=== PATIENT | male | born 1960 | race Caucasian/White ===

== ENCOUNTER 2018-07-24 07:50 | Emergency (ER) | payer OTHER ==
[2018-07-24] MEDS ORDERED: LIDOCAINE 1% MPF 5 ML VIAL ONE (08:17)
--- NOTE | 2018-07-24 09:00 | ER ---
Nurse's Notes [facility] Name: Caesar Aquino Age: 58 yrs Sex: Male : 1960 Arrival Date: 07/24/2018 Time: 07:52 Bed 20 Private MD: Diagnosis: Laceration without foreign body of hand Presentation: 07/24 07:53 Presenting complaint: Patient states: laceration to the left hand happened this morning sv with a knife. Transition of care: patient was not received from another setting of care. Complicating Factors: There are no complicating factors for this patient. Onset of symptoms was July 24, 2018. Initial Sepsis Screen: Does the patient meet any 2 criteria? No. Patient's initial sepsis screen is negative. Does the patient have a suspected source of infection? No. Patient's initial sepsis screen is negative. Care prior to arrival: None. 07:53 Method Of Arrival: Ambulatory sv 07:53 Acuity: ALEXIA 3 sv 08:00 Risk Assessment: Do you want to hurt yourself or someone else? Patient reports no em desire to harm self or others. Historical: - Allergies: 07:58 No Known Allergies; sv - Home Meds: 07:58 None [Active]; sv - PMHx: 07:58 None; sv - PSHx: 07:58 back surgery; bone graft to left forearm; sv - Immunization history:: Adult Immunizations up to date, Last tetanus immunization: < 10 years ago. - Social history:: Smoking status: Patient uses tobacco products, denies chronic smoking, but will smoke occasionally, Patient uses alcohol, occasionally. - Ebola Screening: : No symptoms or risks identified at this time. - Family history:: not pertinent. Screenin:00 Abuse screen: Denies threats or abuse. Nutritional screening: No deficits noted. em Tuberculosis screening: No symptoms or risk factors identified. Fall Risk None identified. Assessment: 07:53 General: Appears in no apparent distress. uncomfortable, Behavior is calm, cooperative, sv appropriate for age. Pain: Complains of pain in left hand Pain currently is 1 out of 10 on a pain scale. Neuro: Level of Consciousness is awake, alert, obeys commands, Oriented to person, place, time, situation, Moves all extremities. Full function Gait is steady. Respiratory: Respiratory effort is even, unlabored, Respiratory pattern is regular, symmetrical. Derm: Skin is pink, warm \T\ dry. Musculoskeletal: Range of motion: intact in all extremities. Injury Description: Laceration sustained to medial aspect of left hand is contaminated, 0.5 to 2.5 cm long, was sustained 30-60 minutes ago. 09:05 Reassessment: Patient appears in no apparent distress at this time. Patient and/or em family updated on plan of care and expected duration. Pain level reassessed. Patient is alert, oriented x 3, equal unlabored respirations, skin warm/dry/pink. Vital Signs: 07:58 BP 142 / 100; Pulse 71; Resp 18; Temp 97; Pulse Ox 97% ; Weight 97.52 kg; Height 6 ft. sv 0 in. (182.88 cm); Pain 1/10; 09:05 BP 138 / 97; Pulse 68; Resp 18; Pulse Ox 99% on R/A; em 07:58 Body Mass Index 29.16 (97.52 kg, 182.88 cm) sv ED Course: 07:52 Patient arrived in ED. rg4 07:53 Sabas Salcido MD is Attending Physician. dalton 07:58 Triage completed. sv 07:59 Arm band placed on Patient placed in an exam room, on a stretcher. sv 08:00 Patient has correct armband on for positive identification. Bed in low position. Call em light in reach. 08:07 Minor Barnes LVN is Primary Nurse. em 08:55 Assist provider with laceration repair on medial aspect of left hand that was 2.5 cm. em or less using sutures. Set up tray. Performed by Sabas Salcido MD Dressed with 4X4s, Kerlix, Neosporin, Patient tolerated well. 09:07 Patient did not have IV access during this emergency room visit. em Administered Medications: 08:50 Drug: Lidocaine (1 %) 5 ml {Note: administered by Dr. Salcido.} Volume: 5 ml; Route: em Infiltration; Site: wound; 09:06 Follow up: Response: No adverse reaction; Pain is decreased em 09:00 Drug: Tetanus-Diphtheria Toxoid Adult 0.5 ml {Chronic Care Nurse: [employer]. Exp: em 06/09/2020. Lot #: [id number]. } Route: IM; Site: left deltoid; 09:06 Follow up: Response: No adverse reaction em Outcome: 08:59 Discharge ordered by . dalton 09:07 Discharged to home ambulatory, with family. em 09:07 Condition: good 09:07 Discharge instructions given to patient, Instructed on discharge instructions, follow up and referral plans. Demonstrated understanding of instructions, follow-up care. 09:08 Patient left the ED. em Signatures: Sakshi Lange RN RN sv Anderson, Corey, MD MD cha Munoz, Edgar, LUBE MAN LUBE MAN Larissa Mccarty rg4
--- NOTE | 2018-07-24 09:01 | EDPHYS ---
Physician Documentation [facility] Name: Caesar Aquino Age: 58 yrs Sex: Male : 1960 Arrival Date: 07/24/2018 Time: 07:52 Bed 20 Private MD: Sabas Alvarado HPI: 07/24 08:55 This 58 yrs old Male presents to ER via Ambulatory with complaints of dalton Laceration To Hand. 08:55 The patient has a laceration occurred at home. The laceration(s) is(are) located on the dalton left hand. Onset: The symptoms/episode began/occurred just prior to arrival. Associated signs and symptoms: The patient has no apparent associated signs or symptoms. The patient has not experienced similar symptoms in the past. Historical: - Allergies: 07:58 No Known Allergies; sv - Home Meds: 07:58 None [Active]; sv - PMHx: 07:58 None; sv - PSHx: 07:58 back surgery; bone graft to left forearm; sv - Immunization history:: Adult Immunizations up to date, Last tetanus immunization: < 10 years ago. - Social history:: Smoking status: Patient uses tobacco products, denies chronic smoking, but will smoke occasionally, Patient uses alcohol, occasionally. - Ebola Screening: : No symptoms or risks identified at this time. - Family history:: not pertinent. ROS: 08:55 Constitutional: Negative for fever, chills, and weight loss, Eyes: Negative for injury, dalton pain, redness, and discharge, ENT: Negative for injury, pain, and discharge, Neck: Negative for injury, pain, and swelling, Cardiovascular: Negative for chest pain, palpitations, and edema, Respiratory: Negative for shortness of breath, cough, wheezing, and pleuritic chest pain, Abdomen/GI: Negative for abdominal pain, nausea, vomiting, diarrhea, and constipation, Back: Negative for injury and pain, : Negative for injury, bleeding, discharge, and swelling, Skin: Negative for injury, rash, and discoloration, Neuro: Negative for headache, weakness, numbness, tingling, and seizure, Psych: Negative for depression, anxiety, suicide ideation, homicidal ideation, and hallucinations, Allergy/Immunology: Negative for hives, rash, and allergies, Endocrine: Negative for neck swelling, polydipsia, polyuria, polyphagia, and marked weight changes, Hematologic/Lymphatic: Negative for swollen nodes, abnormal bleeding, and unusual bruising. 08:55 MS/extremity: Positive for laceration. Exam: 08:55 Constitutional: This is a well developed, well nourished patient who is awake, alert, dalton and in no acute distress. Head/Face: Normocephalic, atraumatic. Eyes: Pupils equal round and reactive to light, extra-ocular motions intact. Lids and lashes normal. Conjunctiva and sclera are non-icteric and not injected. Cornea within normal limits. Periorbital areas with no swelling, redness, or edema. ENT: Nares patent. No nasal discharge, no septal abnormalities noted. Tympanic membranes are normal and external auditory canals are clear. Oropharynx with no redness, swelling, or masses, exudates, or evidence of obstruction, uvula midline. Mucous membranes moist. Neck: Trachea midline, no thyromegaly or masses palpated, and no cervical lymphadenopathy. Supple, full range of motion without nuchal rigidity, or vertebral point tenderness. No Meningismus. Chest/axilla: Normal chest wall appearance and motion. Nontender with no deformity. No lesions are appreciated. Cardiovascular: Regular rate and rhythm with a normal S1 and S2. No gallops, murmurs, or rubs. Normal PMI, no JVD. No pulse deficits. Respiratory: Lungs have equal breath sounds bilaterally, clear to auscultation and percussion. No rales, rhonchi or wheezes noted. No increased work of breathing, no retractions or nasal flaring. Abdomen/GI: Soft, non-tender, with normal bowel sounds. No distension or tympany. No guarding or rebound. No evidence of tenderness throughout. Back: No spinal tenderness. No costovertebral tenderness. Full range of motion. Male : Normal genitalia with no discharge or lesions. Skin: Warm, dry with normal turgor. Normal color with no rashes, no lesions, and no evidence of cellulitis. Neuro: Awake and alert, GCS 15, oriented to person, place, time, and situation. Cranial nerves II-XII grossly intact. Motor strength 5/5 in all extremities. Sensory grossly intact. Cerebellar exam normal. Normal gait. Psych: Awake, alert, with orientation to person, place and time. Behavior, mood, and affect are within normal limits. 08:55 Musculoskeletal/extremity: ROM: no acute changes, Circulation is intact in all extremities. Sensation intact. Compartment Syndrome exam of affected extremity: is normal. Vital Signs: 07:58 BP 142 / 100; Pulse 71; Resp 18; Temp 97; Pulse Ox 97% ; Weight 97.52 kg; Height 6 ft. sv 0 in. (182.88 cm); Pain 1/10; 09:05 BP 138 / 97; Pulse 68; Resp 18; Pulse Ox 99% on R/A; em 07:58 Body Mass Index 29.16 (97.52 kg, 182.88 cm) sv Laceration: 08:55 Wound Repair of 1.5cm ( 0.6in ) subcutaneous laceration to inner aspect of left palm dalton and medial aspect of left hand. Linear shaped.. Distal neuro/vascular/tendon intact. Anesthesia: Local anesthetic administered with 4 mls of 1% lidocaine. Wound prep: Simple cleansing by me, Moderate cleansing. Skin closed with 3 5-0 Prolene using interrupted sutures and sterile technique. Dressed with Neosporin. Patient tolerated well. MDM: 07:54 Patient medically screened. [facility] 08:55 Data reviewed: vital signs, nurses notes. [facility] 07/24 08:55 Order name: Dressing - Wound; Complete Time: 08:57 [facility] 07/24 08:55 Order name: Gloves, Sterile; Complete Time: 08:57 [facility] 07/24 08:55 Order name: Setup Suture Tray; Complete Time: 08:57 [facility] Administered Medications: 08:50 Drug: Lidocaine (1 %) 5 ml {Note: administered by Dr. Salcido.} Volume: 5 ml; Route: em Infiltration; Site: wound; 09:06 Follow up: Response: No adverse reaction; Pain is decreased em 09:00 Drug: Tetanus-Diphtheria Toxoid Adult 0.5 ml {Punch Operator: [email or web address]. Exp: em 06/09/2020. Lot #: [id number]. } Route: IM; Site: left deltoid; 09:06 Follow up: Response: No adverse reaction em Disposition: 07/24/18 08:59 Discharged to Home. Impression: Laceration without foreign body of hand. - Condition is Stable. - Discharge Instructions: Laceration Care, Adult, Laceration Care, Adult, [id number]. - Medication Reconciliation Form, Thank You Letter, Antibiotic Education, Prescription Opioid Use form. - Follow up: Private Physician; When: 7 - 10 days; Reason: Recheck today's complaints, Continuance of care, Re-evaluation by your physician. - Problem is new. - Symptoms have improved. Signatures: Sakshi Lange, NATHEN RN Sabas Hilliard MD MD cha Munoz, Edgar, TRAFFIC OBSERVER TRAFFIC OBSERVER em Corrections: (The following items were deleted from the chart) 09:08 08:59 07/24/2018 08:59 Discharged to Home. Impression: Laceration without foreign body em of hand. Condition is Stable. Forms are Medication Reconciliation Form, Thank You Letter, Antibiotic Education, Prescription Opioid Use. Follow up: Private Physician; When: 7 - 10 days; Reason: Recheck today's complaints, Continuance of care, Re-evaluation by your physician. Problem is new. Symptoms have improved. dalton
[2018-07-24] MEDS ORDERED: TETANUS & DIPHTHERIA TOX,ADULT 0.5 ML VIAL ONE (09:08)
== END 2018-07-24 09:08 | disposition home or self-care (01) ==
LOC: ER 07:50
PROC: 0JQK0ZZ Repair Left Hand Subcutaneous Tissue and Fascia, Open Approach (ICD-10-PCS; principal; 2018-07-24)
DX: S61.412A Laceration without foreign body of left hand, initial encounter (principal); Z23 Encounter for immunization; W45.8XXA Other foreign body or object entering through skin, initial encounter; Y93.9 Activity, unspecified; Y92.009 Unspecified place in unspecified non-institutional (private) residence as the place of occurrence of the external cause; Z72.0 Tobacco use
CPT/HCPCS: 90714; 99283

== ENCOUNTER 2018-08-25 15:52 | Emergency (ER) | payer OTHER ==
[2018-08-25 16:35] LABS: Absolute Lymphocytes (CBC) 1.8 K/uL (0.7-4.9); Absolute Monocytes 0.9 K/uL (0.1-1.3); Absolute Neutrophil 8.5 K/uL (1.8-8.0); Basophils % 0.3 % (0-1.3); Eosinophils % 1.4 % (0-4.4); Hematocrit 43.9 % (39.6-49.0); Lymphocytes % 16.1 % (15.3-44.8); MPV 7.4 fL (7.6-11.3); Monocytes % 7.8 % (3.3-12.3); RBC Red Blood Cell Count 5.05 M/uL (4.33-5.43)
[2018-08-25 16:54] LABS: Albumin 3.6 g/dL (3.4-5.0); Bilirubin Direct 0.1 mg/dL (0-0.2); Bilirubin Total 0.3 mg/dL (0.2-1.0); Potassium 3.8 mmol/L (3.5-5.1); Protein, Total 8.1 g/dL (6.4-8.2)
[2018-08-25] MEDS ORDERED: FAMOTIDINE 20 MG/2 ML VIAL IV ONE (16:55)
[2018-08-25] MEDS ORDERED: MAGNE/ALUM HYDROXD 30 ML UCUP ONE (16:55)
[2018-08-25] MEDS ORDERED: LIDOCAINE VISCOUS 2% SOLN 15 ML UDC ONE (16:55)
--- NOTE | 2018-08-25 17:27 | RAD REPORT ---
EXAM DESCRIPTION: CT - Abdomen Pelvis W Contrast - 08/25/2018 5:12 pm CLINICAL HISTORY: Abdominal pain/epigastric pain. COMPARISON: 2014 CT chest TECHNIQUE: Computed axial tomography of the abdomen pelvis was obtained. 100 cc Isovue-300 was admin istered intravenously. Oral contrast was not requested which limits evaluation of bowel. All CT scans are performed using dose optimization technique as appropriate and may include automated exposure control or mA/KV adjustment according to patient size. FINDINGS: Mild to moderate stranding is present adjacent to the pancreatic head. Pancreatic head is mildly inhomogeneous. A pseudocyst is not seen Fatty liver. Several hepatic cysts largest measuring 2.5 centimeters Spleen, adrenals and right kidney are unremarkable. Left renal cortical thinning perhaps secondary to prior inflammation. There is no evidence of diverticulitis. Normal appendix Small inguinal hernias contain fat. Mild enlargement of the prostate gland Tiny left basilar lung nodules unchanged from 2014 is benign IMPRESSION: [id number] pancreatitis.
--- NOTE | 2018-08-25 17:37 | EDPHYS ---
Physician Documentation [facility] Name: Caesar Aquino Age: 58 yrs Sex: Male : 1960 Arrival Date: 08/25/2018 Time: 15:55 Bed 13 Private MD: None, None ED Physician Sherita Duncan HPI: 08/25 16:35 This 58 yrs old Male presents to ER via Ambulatory with complaints of ma2 Abdominal Pain. 16:35 The patient presents with abdominal pain. Onset: The symptoms/episode began/occurred ma2 gradually, 2 day(s) ago. The symptoms do not radiate. Associated signs and symptoms: Pertinent positives: Pertinent negatives: anorexia, diarrhea, dysuria, headache, vomiting. The symptoms are described as burning. 16:36 Severity of pain: At its worst the pain was moderate in the emergency department the ma2 pain is unchanged. Historical: - Allergies: 16:03 No Known Allergies; sv - PMHx: 16:03 None; sv - PSHx: 16:03 back surgery; bone graft to left forearm; sv - Immunization history:: Adult Immunizations up to date. - Social history:: Patient/guardian denies using alcohol, street drugs, The patient lives with family, Smoking status: Patient/guardian denies using tobacco. - Family history:: not pertinent. - Ebola Screening: : No symptoms or risks identified at this time. ROS: 16:42 Constitutional: Negative for fever, chills, and weight loss, ENT: Negative for injury, ma2 pain, and discharge, Neck: Negative for injury, pain, and swelling, Cardiovascular: Negative for chest pain, palpitations, and edema, Respiratory: Negative for shortness of breath, cough, wheezing, and pleuritic chest pain, Abdomen/GI: Negative for abdominal pain, nausea, diarrhea, and constipation, Back: Negative for injury and pain, MS/Extremity: Negative for injury and deformity, Skin: Negative for injury, rash, and discoloration, Psych: Negative for depression, anxiety, suicide ideation, homicidal ideation, and hallucinations. 16:42 Abdomen/GI: Positive for abdominal pain, Negative for nausea and vomiting, nausea, vomiting, and diarrhea, vomiting, constipation, rectal bleeding. Exam: 16:42 Constitutional: This is a well developed, well nourished patient who is awake, alert, ma2 and in no acute distress. 16:42 ENT: Nares patent. No nasal discharge, no septal abnormalities noted. Tympanic membranes are normal and external auditory canals are clear. Oropharynx with no redness, swelling, or masses, exudates, or evidence of obstruction, uvula midline. Mucous membranes moist. Neck: Trachea midline, no thyromegaly or masses palpated, and no cervical lymphadenopathy. Supple, full range of motion without nuchal rigidity, or vertebral point tenderness. No Meningismus. Chest/axilla: Normal chest wall appearance and motion. Nontender with no deformity. No lesions are appreciated. Cardiovascular: Regular rate and rhythm with a normal S1 and S2. No gallops, murmurs, or rubs. Normal PMI, no JVD. No pulse deficits. Respiratory: Lungs have equal breath sounds bilaterally, clear to auscultation and percussion. No rales, rhonchi or wheezes noted. No increased work of breathing, no retractions or nasal flaring. MS/ Extremity: Pulses equal, no cyanosis. Neurovascular intact. Full, normal range of motion. Neuro: Awake and alert, GCS 15, oriented to person, place, time, and situation. Cranial nerves II-XII grossly intact. Motor strength 5/5 in all extremities. Sensory grossly intact. Cerebellar exam normal. Normal gait. 16:42 Abdomen/GI: Inspection: abdomen appears normal, Bowel sounds: normal, Palpation: moderate abdominal tenderness, in the epigastric area, Liver: no appreciated palpable abnormalities. Vital Signs: 16:03 BP 133 / 83; Pulse 84; Resp 18; Temp 98.9; Pulse Ox 95% ; Weight 93.44 kg; Height 6 ft. sv 0 in. (182.88 cm); Pain 3/10; 17:00 BP 128 / 78; Pulse 82; Resp 16; Pulse Ox 99% on R/A; Pain 3/10; hb 16:03 Body Mass Index 27.94 (93.44 kg, 182.88 cm) sv MDM: 16:04 Patient medically screened. [facility] 16:42 Differential diagnosis: cholecystitis, Cholelithiasis, gastritis, gastroesophageal ma2 reflux disease. 17:36 Data reviewed: vital signs, nurses notes. Counseling: I had a detailed discussion with ma2 the patient and/or guardian regarding: the historical points, exam findings, and any diagnostic results supporting the discharge/admit diagnosis, the presence of at least one elevated blood pressure reading (>120/80) during this emergency department visit, the need for outpatient follow up. Response to treatment: the patient's symptoms have resolved after treatment. 08/25 16:05 Order name: Basic Metabolic Panel; Complete Time: 17:36 ma2 08/25 16:05 Order name: CBC with Diff; Complete Time: 16:41 ma2 08/25 16:05 Order name: Creatinine for Radiology; Complete Time: 17:36 ma2 08/25 16:05 Order name: Hepatic Function; Complete Time: 17:36 ma2 08/25 16:05 Order name: Lipase; Complete Time: 17:36 ma2 08/25 16:57 Order name: Urine Dipstick--Ancillary (enter results) bd 08/25 16:05 Order name: IV Saline Lock; Complete Time: 16:18 ma2 08/25 16:05 Order name: Labs collected and sent; Complete Time: 16:18 ma2 08/25 16:05 Order name: CT Abd/Pelvis - W/Contrast; Complete Time: 17:36 ma2 08/25 16:05 Order name: Urine Dipstick-Ancillary (obtain specimen); Complete Time: 16:55 ma2 Administered Medications: 16:55 Drug: Pepcid 20 mg Route: IVP; Site: right antecubital; hb 16:55 Drug: GI Cocktail without - (Maalox Suspension 30 ml, Lidocaine Liquid 2 % 15 hb ml) Route: PO; Disposition: 08/25/18 17:37 Discharged to Home. Impression: Acute pancreatitis, Gastritis, unspecified. - Condition is Stable. - Discharge Instructions: Gastritis, Adult. - Prescriptions for Pepcid 20 mg Oral Tablet - take 1 tablet by ORAL route every 12 hours for 10 days; 20 tablet. Tylenol- Codeine #3 300-30 mg Oral Tablet - take 2 tablet by ORAL route every 6 hours As needed; 30 tablet. promethazine 25 mg Oral Tablet - take 1 tablet by ORAL route every 6 hours As needed; 20 tablet. - Medication Reconciliation Form, Thank You Letter, Antibiotic Education, Prescription Opioid Use form. - Follow up: Private Physician; When: Tomorrow; Reason: Continuance of care. Signatures: Dispatcher [facility] Sakshi Beach RN RN Michaela Gatica RN RN Sherita Duncan MD MD ma2 Corrections: (The following items were deleted from the chart) 18:12 17:37 08/25/2018 17:37 Discharged to Home. Impression: Acute pancreatitis; Gastritis, hb unspecified. Condition is Stable. Forms are Medication Reconciliation Form, Thank You Letter, Antibiotic Education, Prescription Opioid Use. Follow up: Private Physician; When: Tomorrow; Reason: Continuance of care. ma2
--- NOTE | 2018-08-25 17:37 | ER ---
Nurse's Notes [facility] Name: Caesar Aquino Age: 58 yrs Sex: Male : 1960 Arrival Date: 08/25/2018 Time: 15:55 Bed 13 Private MD: None, None Diagnosis: Acute pancreatitis;Gastritis, unspecified Presentation: 08/25 16:02 Presenting complaint: Patient states: epigastric pain x 4 days. Pt states pain gets sv better after eating sometimes. Denies n/v/d. Transition of care: patient was not received from another setting of care. Onset of symptoms was August 21, 2018. Care prior to arrival: None. 16:02 Method Of Arrival: Ambulatory sv 16:02 Acuity: ALEXIA 3 sv 16:15 Initial Sepsis Screen: Does the patient meet any 2 criteria? No. Patient's initial hb sepsis screen is negative. Does the patient have a suspected source of infection? No. Patient's initial sepsis screen is negative. 16:30 Risk Assessment: Do you want to hurt yourself or someone else? Patient reports no hb desire to harm self or others. Historical: - Allergies: 16:03 No Known Allergies; sv - PMHx: 16:03 None; sv - PSHx: 16:03 back surgery; bone graft to left forearm; sv - Immunization history:: Adult Immunizations up to date. - Social history:: Patient/guardian denies using alcohol, street drugs, The patient lives with family, Smoking status: Patient/guardian denies using tobacco. - Family history:: not pertinent. - Ebola Screening: : No symptoms or risks identified at this time. Screenin:15 Abuse screen: Denies threats or abuse. Denies injuries from another. Nutritional hb screening: No deficits noted. Tuberculosis screening: No symptoms or risk factors identified. Fall Risk None identified. Assessment: 16:15 General: Appears in no apparent distress. Behavior is calm, cooperative. Pain: Pain hb currently is 3 out of 10 on a pain scale. Neuro: Level of Consciousness is awake, alert, obeys commands, Oriented to person, place, time, situation. Cardiovascular: Capillary refill < 3 seconds Patient's skin is warm and dry. Respiratory: Airway is patent Respiratory effort is even, unlabored, Respiratory pattern is regular, symmetrical, Breath sounds are clear bilaterally. GI: Abdomen is non-distended, Bowel sounds present X 4 quads. Abd is soft and non tender X 4 quads. Reports upper abdominal pain. : No signs and/or symptoms were reported regarding the genitourinary system. EENT: No signs and/or symptoms were reported regarding the EENT system. Derm: Skin is intact, is healthy with good turgor, Skin is pink, warm \T\ dry. normal. Musculoskeletal: No signs and/or symptoms reported regarding the musculoskeletal system. 17:15 Reassessment: Patient appears in no apparent distress at this time. Patient and/or hb family updated on plan of care and expected duration. Pain level reassessed. Patient is alert, oriented x 3, equal unlabored respirations, skin warm/dry/pink. Vital Signs: 16:03 BP 133 / 83; Pulse 84; Resp 18; Temp 98.9; Pulse Ox 95% ; Weight 93.44 kg; Height 6 ft. sv 0 in. (182.88 cm); Pain 3/10; 17:00 BP 128 / 78; Pulse 82; Resp 16; Pulse Ox 99% on R/A; Pain 3/10; hb 16:03 Body Mass Index 27.94 (93.44 kg, 182.88 cm) sv ED Course: 15:55 Patient arrived in ED. mr 15:55 None, None is Private Physician. mr 16:03 Triage completed. sv 16:04 Sherita Duncan MD is Attending Physician. ma2 16:04 Arm band placed on. sv 16:07 Radiology exam delayed due to lab results not completed at this time. (BUN/Creatinine). sj 16:11 Michaela Gatica, RN is Primary Nurse. hb 16:15 Patient has correct armband on for positive identification. Placed in gown. Bed in low hb position. Call light in reach. Side rails up X 1. 16:23 Radiology exam delayed due to lab results not completed at this time. (BUN/Creatinine). sj 16:30 Inserted saline lock: 20 gauge in right antecubital area, using aseptic technique. hb Blood collected. 16:[address] via wheelchair. sj 17:03 CT completed. Patient tolerated procedure well. Patient moved back from CT. nj 17:13 CT Abd/Pelvis - W/Contrast In Process Unspecified. EDMS 18:12 No provider procedures requiring assistance completed. IV discontinued, intact, hb bleeding controlled, No redness/swelling at site. Pressure dressing applied. Administered Medications: 16:55 Drug: Pepcid 20 mg Route: IVP; Site: right antecubital; hb 16:55 Drug: GI Cocktail without - (Maalox Suspension 30 ml, Lidocaine Liquid 2 % 15 hb ml) Route: PO; Outcome: 17:37 Discharge ordered by MD. reeves 18:12 Discharged to home ambulatory. hb 18:12 Condition: stable 18:12 Discharge instructions given to patient, Instructed on discharge instructions, follow up and referral plans. medication usage, Demonstrated understanding of instructions, follow-up care, medications, Prescriptions given X 3. 18:12 Patient left the ED. Signatures: Dispatcher [employer] EDMS Sakshi Lange RN RN Niecy Stroud, Michaela Alonzo RN RN hb Jordan, Sherita Donohue MD MD ma2
[2018-08-25 17:40] LABS: Urine Blood TRACE (NEG); Urine Glucose NEGATIVE (NEG); Urine Protein NEGATIVE (NEG); Urine Specific Gravity 1.025 (1.005-1.030); Urine pH 5.5 (5.0-7.0)
== END 2018-08-25 18:12 | disposition home or self-care (01) ==
LOC: ER 15:52
DX: K85.90 Acute pancreatitis without necrosis or infection, unspecified (principal); K29.70 Gastritis, unspecified, without bleeding
CPT/HCPCS: 36415; 74177; 80048; 80076; 81003; 83690; 85025; 96374; 99284; Q9967

== ENCOUNTER 2022-03-05 07:12 | Emergency (ER) | payer OTHER ==
--- OUTSIDE RECORDS SUMMARY | 2022-03-05 07:15 | XMS REPORT | Continuity of Care Document ---
:1960 Author Organization [facility] Address [address] [place] [address] Care Team Providers Name Role Phone Pcp, Patient Does Not Have A Primary Care Physician +[id number] Shakeel Ross MD Attending Clinician Gabi Cole RN Attending Clinician Unavailable Only, Adc Test Attending Clinician Unavailable Jacob Benitez MD Attending Clinician JACOB BENITEZ Attending Clinician Unavailable Doctor Unassigned, [place] Attending Clinician Unavailable Meagan Skinner RN Attending Clinician Unavailable Lab, Adc Fam Pob I Attending Clinician Unavailable Maria C Hill Attending Clinician Payers Payer Name Policy Type Policy Number Effective Date Expiration Date S ource Problems This patient has no known problems. Allergies, Adverse Reactions, Alerts Allergy Allergy Status Severity Reaction(s) Onset Inactive Treating Comm ents Source Name Type Date Date Clinician NO KNOWN Drug Active [facility] ALLERGIE [facility] Social History Social Habit Start Date Stop Date Quantity Comments Source Alcohol intake 2016-05-07 2016-05-07 0 /d [facility] 00:00:00 00:00:00 [facility] Sex Assigned At [birth year] [facility] 00:00:00 00:00:00 [facility] Smoking Status Start Date Stop Date Source Light tobacco smoker 2016-05-07 00:00:00 [facility] Medications Ordered Filled Start Stop Current Ordering Indication Dosage Frequency Signature Comments Components Source Medication Medication Date Date Medication? Clinician (SIG) Name Name No known 2015-06 No [facility] medications - ity of 10:04: [address] No known 2015-06 No Univers medications 07-07 ity of 10:04: [address] No known 2015-06 No Univers medications 07-07 ity of 10:04: [address] No known 2015-06 No Univers medications 07-07 ity of 10:04: [address] No known No Univers medications ity of [facility] No known No Univers medications ity of [facility] No known No Univers medications ity of [facility] Procedures Procedure Date / Time Performed Performing Clinician [facility] e ASSIGNMENT OF BENEFITS 2021-04-28 14:27:26 Doctor Unassigned, No University [facility] Name Medical Branch Encounters Start End Encounter Admission Attending Care Care Encounter Source Date/Time Date/Time Type Type Clinicians Facility Department ID 2021-04-29 2021-04-29 Letter LUKAS Ross [id number] Univers 00:00:00 00:00:00 (Out) Shakeel CASILLAS [id number] i ty of [facility] [id number] Jake as [phone] [address] 2021-04-29 2021-04-29 Telephone LUKAS Cole [id number] Univers 00:00:00 00:00:00 Gabi CASILLAS [id number] i ty of [facility] [id number] Jake as [phone] [facility] [address] 2021-04-28 2021-04-28 Laboratory Only, Adc Test [facility] [id number] Univers 08:31:53 08:46:53 Only Jacob Benitez [id number] ity [facility] [id number] [place] [facility] [phone] [address] 2021-04-28 2021-04-28 Outpatient [facility] [id number] Univers 08:15:00 08:15:00 [id number] ity of [facility] 2021-04-28 2021-04-28 Outpatient R ELI [facility] [id number] Univers 08:15:00 08:15:00 JACOB ity of [facility] 2021-04-28 2021-04-28 Orders Doctor LUKAS [id number] Univers 00:00:00 00:00:00 Only Unassigned, SONJA [id number] ity of [place] [facility] [id number] Jake as [phone] [facility] [address] 2020-08-25 2020-08-25 Outpatient [facility] [id number] Univers 10:20:00 10:20:00 ity of [facility] 2020-02-09 2020-02-09 Letter LUKAS Skinner [id number] Univers 00:00:00 00:00:00 (Out) Meagan FARFANY [id number] it y of HOSPITAL [id number] Jake as [phone] [place] [address] Branch 2020-02-08 2020-02-08 Laboratory Lab, Adc Fam Pob I [facility] [id number] Univers 08:34:17 08:54:17 Only Anene, Maria C [facility] [id number] ity of [place] [id number] Jake as Professio [phone] La dical [facility] [address] 2020-02-08 2020-02-08 Outpatient R [facility] [id number] Univers 08:40:00 08:40:00 ity of [facility] 2020-02-08 2020-02-08 Outpatient R [facility] [id number] Univers 08:40:00 08:40:00 ity of [facility] 2020-02-08 2020-02-08 Letter Doctor GAYTAN [id number] Univers 00:00:00 00:00:00 (Out) Unassigned, SONJA [id number] ity of [place] [facility] [id number] Jake as [id number] [address] Results This patient has no known results.
[2022-03-05] MEDS ORDERED: AZITHROMYCIN 250 MG TAB ONE (08:52)
--- NOTE | 2022-03-05 08:52 | EDPHYS ---
Physician Documentation [facility] Name: Caesar Aquino Age: 61 yrs Sex: Male : 1960 Arrival Date: 03/05/2022 Time: 07:14 Bed 10 Private MD: ED Physician Sabas Salcido HPI: 03/05 08:49 This 61 yrs old Male presents to ER via Ambulatory with complaints of Flu dalton Symptoms. 08:49 The patient or guardian reports cough, described as mild, flu symptoms, arthralgias, dalton low-grade fever, myalgias. Onset: The symptoms/episode began/occurred 3 day(s) ago. Modifying factors: The symptoms are alleviated by nothing. the symptoms are aggravated by nothing. Severity of symptoms: At their worst the symptoms were mild, in the emergency department the symptoms are unchanged. Associated signs and symptoms: The patient has no apparent associated signs or symptoms. Severity of symptoms: At their worst the symptoms were mild in the emergency department the symptoms are unchanged. Historical: - Allergies: 07:23 No Known Allergies; aa5 - Home Meds: 07:23 None [Active]; aa5 - PMHx: 07:23 None; aa5 - PSHx: 07:23 Back x 3; aa5 - Immunization history:: Adult Immunizations unknown. - Social history:: Smoking status: Patient reports the use of cigarette tobacco products, 1 cigarette a day . - Family history:: not pertinent. ROS: 08:49 Constitutional: Negative for fever, chills, and weight loss, Eyes: Negative for injury, dalton pain, redness, and discharge, Neck: Negative for injury, pain, and swelling, Cardiovascular: Negative for chest pain, palpitations, and edema, Abdomen/GI: Negative for abdominal pain, nausea, vomiting, diarrhea, and constipation, Back: Negative for injury and pain, : Negative for injury, bleeding, discharge, and swelling, MS/Extremity: Negative for injury and deformity, Skin: Negative for injury, rash, and discoloration, Neuro: Negative for headache, weakness, numbness, tingling, and seizure, Psych: Negative for depression, anxiety, suicide ideation, homicidal ideation, and hallucinations, Allergy/Immunology: Negative for hives, rash, and allergies, Endocrine: Negative for neck swelling, polydipsia, polyuria, polyphagia, and marked weight changes, Hematologic/Lymphatic: Negative for swollen nodes, abnormal bleeding, and unusual bruising. 08:49 ENT: Positive for rhinorrhea, sinus congestion, sore throat. 08:49 Respiratory: Positive for cough, with no reported sputum. Exam: 08:49 Constitutional: This is a well developed, well nourished patient who is awake, alert, dalton and in no acute distress. Head/Face: Normocephalic, atraumatic. Eyes: Pupils equal round and reactive to light, extra-ocular motions intact. Lids and lashes normal. Conjunctiva and sclera are non-icteric and not injected. Cornea within normal limits. Periorbital areas with no swelling, redness, or edema. ENT: Nares patent. No nasal discharge, no septal abnormalities noted. Tympanic membranes are normal and external auditory canals are clear. Oropharynx with no redness, swelling, or masses, exudates, or evidence of obstruction, uvula midline. Mucous membranes moist. Neck: Trachea midline, no thyromegaly or masses palpated, and no cervical lymphadenopathy. Supple, full range of motion without nuchal rigidity, or vertebral point tenderness. No Meningismus. Chest/axilla: Normal chest wall appearance and motion. Nontender with no deformity. No lesions are appreciated. Cardiovascular: Regular rate and rhythm with a normal S1 and S2. No gallops, murmurs, or rubs. Normal PMI, no JVD. No pulse deficits. Respiratory: Lungs have equal breath sounds bilaterally, clear to auscultation and percussion. No rales, rhonchi or wheezes noted. No increased work of breathing, no retractions or nasal flaring. Abdomen/GI: Soft, non-tender, with normal bowel sounds. No distension or tympany. No guarding or rebound. No evidence of tenderness throughout. Back: No spinal tenderness. No costovertebral tenderness. Full range of motion. Male : Normal genitalia with no discharge or lesions. Skin: Warm, dry with normal turgor. Normal color with no rashes, no lesions, and no evidence of cellulitis. MS/ Extremity: Pulses equal, no cyanosis. Neurovascular intact. Full, normal range of motion. Neuro: Awake and alert, GCS 15, oriented to person, place, time, and situation. Cranial nerves II-XII grossly intact. Motor strength 5/5 in all extremities. Sensory grossly intact. Cerebellar exam normal. Normal gait. Psych: Awake, alert, with orientation to person, place and time. Behavior, mood, and affect are within normal limits. Vital Signs: 07:21 BP 130 / 73; Pulse 107; Resp 18 S; Temp 98.6(O); Pulse Ox 96% on R/A; Weight 95.25 kg aa5 (R); Height 6 ft. 0 in. (182.88 cm) (R); 07:21 Body Mass Index 28.48 (95.25 kg, 182.88 cm) aa5 MDM: 07:28 Patient medically screened. [facility] 08:51 Differential diagnosis: bronchitis, flu, URI. Antibiotic administration: The patient is dalton discharged and will get outpatient antibiotics, Zithromax. Differential Diagnosis:. Data reviewed: vital signs, nurses notes. Data interpreted: alarm security or surveillance monitor: rate is 107 beats/min, rhythm is regular. Counseling: I had a detailed discussion with the patient and/or guardian regarding: the historical points, exam findings, and any diagnostic results supporting the discharge/admit diagnosis, lab results. 03/05 07:28 Order name: SARS-COV-2 RT PCR (Document "Date of Onset" if Symptomatic) [facility] 03/05 07:28 Order name: Flu [facility] 03/05 07:28 Order name: Strep [facility] Administered Medications: 08:59 Drug: Zithromax (azithromycin) 500 mg Route: PO; iw Disposition Summary: 03/05/22 08:52 Discharge Ordered Location: Home [facility] Problem: new [facility] Symptoms: have improved dalton Condition: Stable [facility] Diagnosis - Acute upper respiratory infection, unspecified dalton - Other malaise and fatigue dalton Followup: dalton - With: Private Physician - When: 2 - 3 days - Reason: Recheck today's complaints, Continuance of care, Re-evaluation by your physician Discharge Instructions: - Discharge Summary Sheet dalton - Upper Respiratory Infection, Adult dalton - Cool Mist Vaporizer dalton - Fatigue dalton - Upper Respiratory Infection, Adult, [id number]-Fuwj dalton - Cough, Adult dalton Forms: - Medication Reconciliation Form dalton - Thank You Letter dalton - Antibiotic Education dalton - Prescription Opioid Use dalton Prescriptions: - Zithromax Z-Rico 250 mg Oral Tablet - take 1 tablet by ORAL route as directed for 5 days Day 1 - take two (2) tablets [facility] one time. Day 2, 3, 4 , 5 take one (1) tablet once daily.; 6 tablet; Refills: 0, Product Selection Permitted Signatures: Dispatcher [employer] Sabas Anderson MD MD cha Williams, Irene RN Karina Will RN RN aa5
--- NOTE | 2022-03-05 08:52 | ER ---
Nurse's Notes [facility] Name: Caesar Aquino Age: 61 yrs Sex: Male : 1960 Arrival Date: 03/05/2022 Time: 07:14 Bed 10 Private MD: Diagnosis: Acute upper respiratory infection, unspecified;Other malaise and fatigue Presentation: 03/05 07:21 Chief complaint: Patient states: chills x 2 days, possible fever. Denies any other aa5 symptoms. Reports taking Tylenol 1 hr [employer]. Coronavirus screen: chills. Ebola Screen: Patient denies travel to an Ebola-affected area in the 21 days before illness onset. Initial Sepsis Screen: Does the patient meet any 2 criteria? HR > 90 bpm. Does the patient have a suspected source of infection? Yes:. Risk Assessment: Do you want to hurt yourself or someone else? Patient reports no desire to harm self or others. Onset of symptoms was February 2022. 07:21 Method Of Arrival: Ambulatory aa5 07:21 Acuity: ALEXIA 4 aa5 Triage Assessment: 07:21 General: Appears comfortable, Behavior is calm, cooperative, Reports chills for 1-2 aa5 days. Pain: Denies pain. EENT: No signs and/or symptoms were reported regarding the EENT system. Neuro: Level of Consciousness is awake, alert, obeys commands, Oriented to person, place, time, situation. Cardiovascular: Heart tones S1 S2 present Rhythm is regular. Respiratory: Airway is patent Respiratory effort is even, unlabored, Respiratory pattern is regular, symmetrical, Breath sounds are clear bilaterally. GI: No signs and/or symptoms were reported involving the gastrointestinal system. Patient currently denies diarrhea, nausea, vomiting. : No signs and/or symptoms were reported regarding the genitourinary system. Derm: Skin is pink, warm \T\ dry. Musculoskeletal: Range of motion: intact in all extremities. Historical: - Allergies: 07:23 No Known Allergies; aa5 - Home Meds: 07:23 None [Active]; aa5 - PMHx: 07:23 None; aa5 - PSHx: 07:23 Back x 3; aa5 - Immunization history:: Adult Immunizations unknown. - Social history:: Smoking status: Patient reports the use of cigarette tobacco products, 1 cigarette a day . - Family history:: not pertinent. Screenin:25 Abuse screen: Denies threats or abuse. Nutritional screening: No deficits noted. aa5 Tuberculosis screening: No symptoms or risk factors identified. Fall Risk None identified. Vital Signs: 07:21 BP 130 / 73; Pulse 107; Resp 18 S; Temp 98.6(O); Pulse Ox 96% on R/A; Weight 95.25 kg aa5 (R); Height 6 ft. 0 in. (182.88 cm) (R); 07:21 Body Mass Index 28.48 (95.25 kg, 182.88 cm) aa5 ED Course: 07:14 Patient arrived in ED. am2 07:21 Arm band placed on. aa5 07:23 Triage completed. aa5 07:27 Sabas Salcido MD is Attending Physician. [facility] 07:36 Karina Perez, RN is Primary Nurse. aa5 Administered Medications: 08:59 Drug: Zithromax (azithromycin) 500 mg Route: PO; iw Outcome: 08:52 Discharge ordered by . dalton 08:59 Patient left the ED. iw Signatures: Sabas Salcido MD MD cha Williams, Irene, RN RN iw Karina Perez, NATHEN RN aa5 Lyndsay Salguero am2 Corrections: (The following items were deleted from the chart) 15:39 07:14 General: Appears comfortable, Behavior is calm, cooperative, Reports chills for aa5 1-2 days, aa5 : 07:14 Pain: Denies pain. aa5 aa5 :39 07:14 EENT: No signs and/or symptoms were reported regarding the EENT system. aa5 aa5 :39 07:14 Neuro: Level of Consciousness is awake, alert, obeys commands, Oriented to aa5 person, place, time, situation, aa5 : 07:14 Cardiovascular: Heart tones S1 S2 present Rhythm is regular aa5 aa5 :39 07:14 Respiratory: Airway is patent Respiratory effort is even, unlabored, Respiratory aa5 pattern is regular, symmetrical, Breath sounds are clear bilaterally. aa5 :39 07:14 GI: No signs and/or symptoms were reported involving the gastrointestinal system. aa5 aa5 :39 07:14 : No signs and/or symptoms were reported regarding the genitourinary system. aa5aa5 15:39 07:14 Derm: Skin is pink, warm \T\ dry. aa5 aa5 15:39 07:14 Musculoskeletal: Range of motion: intact in all extremities, aa5 aa5
[2022-03-07 19:18] VITALS: BP 130/73; TEMP 98.6; O2SAT 96
== END 2022-03-05 08:59 | disposition home or self-care (01) ==
LOC: ER 07:12
DX: J06.9 Acute upper respiratory infection, unspecified (principal); R53.81 Other malaise; R53.83 Other fatigue; Z20.822 Contact with and (suspected) exposure to COVID-19; Z72.0 Tobacco use
CPT/HCPCS: 87070; 87081; 87804 ×2; U0003; 99282

== ENCOUNTER 2024-05-26 06:45 | Emergency (ER) | payer OTHER ==
[2024-05-26] MEDS ORDERED: ONDANSETRON 4 MG/2 ML VIAL ONE (07:23)
[2024-05-26] MEDS ORDERED: MAGNES/ALUMIN/SIMET 30ML UCUP ONE (07:24)
[2024-05-26] MEDS ORDERED: MORPHINE 4 MG/ML SYR ONE (07:24)
[2024-05-26] MEDS ORDERED: LIDOCAINE VISCOUS 2% 10ML ORAL SOLN ONE (07:24)
[2024-05-26] MEDS ORDERED: FAMOTIDINE 20 MG/2 ML VIAL IV ONE (07:25)
--- NOTE | 2024-05-26 07:42 | RAD REPORT ---
EXAM: Right upper quadrant ultrasound. CLINICAL HISTORY: ABD PAIN COMPARISON: None. FINDINGS: Gallbladder: Cholelithiasis. Bile ducts: No intrahepatic or extrahepatic biliary dilatation. Common bile duct measures 3 mm. Limited imaging of the liver shows no concerning finding. IMPRESSION: Cholelithiasis.
--- NOTE | 2024-05-26 07:47 | RAD REPORT ---
EXAMINATION: CT ABDOMEN AND PELVIS WITH CONTRAST CLINICAL INDICATION: ABD PAIN TECHNIQUE: CT abdomen and pelvis was performed, after the administration of IV contrast, as per [facility] protocol. Axial, sagittal and coronal reconstructions were obtained. One or more of the following dose reduction techniques were used: Automated exposure control, adjustment of the mA and k V according to patient size, and iterative reconstruction. Unless otherwise specified, incidental findings do not require dedicated imaging follow-up. COMPARISON: 08/25/2018 FINDINGS: LOWER CHEST: The visualized lung bases are clear. LIVER: Several benign cysts are present in the liver. No aggressive liver lesion or biliary dilatatio n. Cholelithiasis. SPLEEN: Normal size. No focal lesion. PANCREAS: No mass, ductal dilation, or carol-pancreatic fluid. ADRENALS: Normal; no mass. KIDNEYS: Normal size and contour. No hydronephrosis. GASTROINTESTINAL TRACT: No evidence of free air, significant intra-abdominal free fluid, bowel obstru ction or abscess. APPENDIX: Normal appendix. LYMPH NODES: No lymphadenopathy. MUSCULOSKELETAL: Moderate lower lumbar degenerative changes. ADDITIONAL FINDINGS: None. IMPRESSION: Cholelithiasis.
[2024-05-26 07:49] LABS: Absolute Eosinophils 0.1 K/uL (0-0.5); Absolute Lymphocytes (CBC) 2.8 K/uL (0.7-4.9); Absolute Monocytes 0.6 K/uL (0.1-1.3); Basophils % 0.5 % (0-1.3); Eosinophils % 1.7 % (0-4.4); Hematocrit 46.7 % (39.6-49.0); Hemoglobin 15.9 g/dL (13.6-17.9); Lymphocytes % 37.3 % (15.3-44.8); MCH 30.2 pg (27.0-35.0); MCHC 34.1 g/dL (32.0-36.0); MCV 88.7 fL (80-100); MPV 6.7 fL (7.6-11.3); Neutrophils % 52.5 % (41.7-73.7); Nucleated Red Blood Cells % 0.1 % (0-0); Platelets 282 thou/uL (152-406); RBC Red Blood Cell Count 5.27 M/uL (4.33-5.43); Red Cell Distribution Width 14.2 % (12.1-15.2)
[2024-05-26 08:08] LABS: Albumin 4.2 g/dL (3.4-5.0); Anion Gap 8.5 mEq/L (5.0-15.0); Bilirubin Total 0.3 mg/dL (0.2-1.0); Globulin 4.3 g/dL (2.3-3.5); Potassium 3.5 mEq/L (3.5-5.1); Protein, Total 8.5 g/dL (6.4-8.2); Troponin High Sensitivity 3.5 pg/mL (<58.9)
--- NOTE | 2024-05-26 09:48 | EDPHYS ---
Physician Documentation [facility] Name: Caesar Aquino Age: 64 yrs Sex: Male : 1960 Arrival Date: 05/26/2024 Time: 06:45 Bed 4 Private MD: ED Physician Celio Hadley HPI: 05/26 07:27 This 64 yrs old Male presents to ER via Ambulatory with complaints of UPPER ABD PAIn. rn 07:27 The patient presents with abdominal pain in the epigastric area, in the upper abdomen, rn in the right upper quadrant. Onset: The symptoms/episode began/occurred this morning. The symptoms radiate to Associated signs and symptoms: Pertinent positives: nausea and vomiting, Pertinent negatives: blood in stools, chest pain, fever. The symptoms are described as sharp, stabbing. Modifying factors: The symptoms are alleviated by nothing, the symptoms are aggravated by touching the area. Severity of pain: At its worst the pain was moderate in the emergency department the pain has improved. The patient has not experienced similar symptoms in the past. Patient reports upper abdominal pain that began this morning. Had [place] food last night and felt bloated. 1 episode of vomiting. No fever or chills. No previous episodes of bladder problems. Does have history of GERD and does not take daily antacid medication. No blood in stool or dark stool.. Historical: - Allergies: 06:48 No Known Allergies; ha1 - Immunization history:: Adult Immunizations up to date. - Infectious Disease History:: Denies. - Social history:: Smoking status: Patient reports the use of cigarette tobacco products, denies chronic smoking, but will smoke occasionally. - Family history:: not pertinent. - Hospitalizations: : No recent hospitalization is reported. ROS: 07:27 Constitutional: Negative for fever, chills, and weight loss, Neck: Negative for injury, rn pain, and swelling, Cardiovascular: Negative for chest pain, palpitations, and edema, Respiratory: Negative for shortness of breath, cough, wheezing, and pleuritic chest pain, Abdomen/GI: Negative for diarrhea, and constipation Back: Negative for injury MS/Extremity: Negative for injury and deformity, Skin: Negative for injury, rash, and discoloration, Neuro: Negative for headache, weakness, numbness, tingling, and seizure, Exam: 07:27 Constitutional: This is a well developed, well nourished patient who is awake, alert, rn and in no acute distress. Cardiovascular: Regular rate and rhythm. No pulse deficits. Respiratory: No increased work of breathing, no retractions or nasal flaring. Abdomen/GI: Soft, right upper quadrant tenderness and epigastric tenderness. Negative Segura sign. No peritoneal signs or distention. MS/ Extremity: Pulses equal, no cyanosis. Neuro: Awake and alert, GCS 15 Vital Signs: 06:48 BP 159 / 104; Pulse 68; Resp 18 S; Temp 97.2(O); Pulse Ox 100% on R/A; Weight 91.63 kg; ha1 Height 6 ft. 0 in. ; 08:07 BP 157 / 98; Pulse 65; Resp 17; Pulse Ox 98% ; ap3 09:18 BP 163 / 82; Pulse 56; Pulse Ox 100% on R/A; ap3 06:48 Body Mass Index 27.40 (91.63 kg, 182.88 cm) ha1 MDM: 06:57 Medical Screening Exam initiated rn 09:32 Differential diagnosis: cholecystitis, Cholelithiasis, gastritis, gastroesophageal rn reflux disease, pancreatitis, Peptic Ulcer Disease, Perf. Duodenal Ulcer, Perf. Gastric Ulcer. Data reviewed: vital signs, nurses notes, lab test result(s), radiologic studies, CT scan, ultrasound, and as a result, I will discharge patient. Counseling: I had a detailed discussion with the patient and/or guardian regarding the historical points, exam findings, and any diagnostic results supporting the discharge/admit diagnosis, lab results, radiology results, the need for outpatient follow up, to return to the emergency department if symptoms worsen or persist or if there are any questions or concerns that arise at home. Response to treatment: the patient's symptoms have markedly improved after treatment, the patient's condition has returned to base line, the patient is now symptom free, and as a result, I will discharge patient. Special discussion: I discussed with the patient/guardian in detail that at this point there is no indication for admission to the hospital. It is understood, however, that if the symptoms persist or worsen the patient needs to return immediately for re-evaluation. Based on the history and exam findings, there is no indication for further emergent testing or inpatient evaluation. I discussed with the patient/guardian the need to see the general surgeon for further evaluation of the symptoms. ED course: Patient reports resolution of pain. Much more comfortable. Shows Cholelithiasis without cholecystitis. Normal LFTs. Will discharge home with general surgery follow-up. Return precautions given and understood.. 05/26 07:05 Order name: CBC with Diff; Complete Time: 08:20 rn 05/26 07:05 Order name: CMP; Complete Time: 08:20 rn 05/26 07:05 Order name: Lipase; Complete Time: 08:20 rn 05/26 07:05 Order name: Troponin High Sensitivity; Complete Time: 08:20 rn 05/26 07:05 Order name: CT Abd/Pelvis - IV Contrast Only; Complete Time: 08:20 rn 05/26 07:05 Order name: US Abdomen Limited; Complete Time: 08:20 rn 05/26 07:05 Order name: EKG; Complete Time: 07:06 rn 05/26 07:05 Order name: IV Saline Lock; Complete Time: 07:43 rn 05/26 07:05 Order name: Labs collected and sent; Complete Time: 07:43 rn 05/26 07:05 Order name: EKG - Nurse/Tech; Complete Time: 08:06 rn Administered Medications: 08:06 Drug: Famotidine IVP 20 mg IVP once; dilute with 10 mL 0.9% NaCl; give over 2 minutes ap3 Route: IVP; Site: left antecubital; 09:52 Follow up: Response: No adverse reaction ap3 08:06 Drug: Ondansetron IVP 4 mg IVP once; over 2 minutes Route: IVP; Site: left antecubital; ap3 09:52 Follow up: Response: No adverse reaction ap3 08:06 Drug: morphine IVP or IV 4 mg IVP once over 4 mins Route: IVP; Infused Over: 4 mins; ap3 Site: left antecubital; 09:52 Follow up: Response: No adverse reaction; Pain is decreased ap3 08:06 Drug: GI Cocktail without - (Maalox PO 30 ml, Lidocaine Mucous Membrane 2 % 15 ap3 ml) PO once Route: PO; 09:52 Follow up: Response: No adverse reaction ap3 Disposition Summary: 05/26/24 09:47 Discharge Ordered Notes: Location: Home rn Problem: new rn Symptoms: have improved rn Condition: Stable rn Diagnosis - Other cholelithiasis without obstruction rn Followup: rn - With: Rudi Oliva MD - When: 2 - 3 days - Reason: Recheck today's complaints, Re-evaluation by your physician Discharge Instructions: - Discharge Summary Sheet rn - Cholelithiasis rn Forms: - Medication Reconciliation Form rn - Antibiotic customer success intern - Prescription Opioid Use rn - Patient Portal Instructions rn - Leadership Thank You Letter rn Prescriptions: - ondansetron 4 mg Oral Tablet,disintegrating - take 1 tablet ORAL route every 8 hours As needed; 12 tablet; Refills: 0, rn Product Selection Permitted - Tramadol 50 mg Oral Tablet - take 1 tablet ORAL route every 8 hours as needed; 12 tablet; Refills: 0, rn Product Selection Permitted Signatures: Dispatcher [employer] EDCelio Turner MD MD rn Prokisch, Amanda RN RN ap3 Marcela Fish RN RN ha1
--- NOTE | 2024-05-26 09:48 | ER ---
Nurse's Notes [facility] Name: Caesar Aquino Age: 64 yrs Sex: Male : 1960 Arrival Date: 05/26/2024 Time: 06:45 Bed 4 Private MD: Diagnosis: Other cholelithiasis without obstruction Presentation: 05/26 06:48 Chief complaint: Patient states: RIGHT UPPER QUADRANT PAIN RADIATES TO BACK. ha1 06:48 Coronavirus screen: Client denies travel out of the [place] in the last 14 days. Ebola ha1 Screen: No symptoms or risks identified at this time. Initial Sepsis Screen: Does the patient meet any 2 criteria? No. Patient's initial sepsis screen is negative. Does the patient have a suspected source of infection? No. Patient's initial sepsis screen is negative. Risk Assessment: Do you want to hurt yourself or someone else? Patient reports no desire to harm self or others. Onset of symptoms was May 26, 2024. 06:48 Method Of Arrival: Ambulatory ha1 06:48 Acuity: ALEXIA 3 ha1 Triage Assessment: 06:48 General: Appears uncomfortable, Behavior is cooperative. Pain: Complains of pain in ha1 right upper quadrant Pain does not radiate. Pain currently is 8 out of 10 on a pain scale. Quality of pain is described as aching, heavy, pressure, Pain began suddenly. Neuro: Level of Consciousness is awake, alert, obeys commands, Oriented to person, place, time, situation. Cardiovascular: Capillary refill < 3 seconds Patient's skin is warm and dry. Respiratory: Airway is patent Respiratory effort is even, unlabored, Respiratory pattern is regular, symmetrical. GI: Abdomen is round non-distended, Reports upper abdominal pain. Derm: Skin is pink, warm \T\ dry. Musculoskeletal: Circulation, motion, and sensation intact. Range of motion: intact in all extremities. Historical: - Allergies: 06:48 No Known Allergies; ha1 - Immunization history:: Adult Immunizations up to date. - Infectious Disease History:: Denies. - Social history:: Smoking status: Patient reports the use of cigarette tobacco products, denies chronic smoking, but will smoke occasionally. - Family history:: not pertinent. - Hospitalizations: : No recent hospitalization is reported. Screenin:05 Abuse screen: Denies threats or abuse. Denies injuries from another. Nutritional ha1 screening: No deficits noted. Tuberculosis screening: No symptoms or risk factors identified. 07:14 [facility] ED Fall Risk Assessment (Adult) History of falling in the last 3 months, ap3 including since admission No falls in past 3 months (0 pts) Confusion or Disorientation No (0 pts) Intoxicated or Sedated No (0 pts) Impaired Gait No (0 pts) Mobility Assist Device Used No (0 pt) Altered Elimination No (0 pt) Score/Fall Risk Level 0 - 2 = Low Risk Oriented to surroundings, Maintained a safe environment, Educated pt \T\ family on fall prevention, incl call for assistance when getting out of bed, Assessed \T\ reinforced patient's understanding of fall precautions, Hourly rounding (assess needs \T\ fall precautionary measures) done, Used ambulatory aids as needed (educated on \T\ assisted with), Used gait belt as appropriate. Assessment: 07:14 General: Appears uncomfortable, Behavior is calm, cooperative, appropriate for age. ap3 Pain: Complains of pain in back Pain currently is 8 out of 10 on a pain scale. Neuro: Level of Consciousness is awake, alert, obeys commands, Oriented to person, place, time, situation, Appropriate for age. Cardiovascular: Patient's skin is warm and dry. Respiratory: Airway is patent Respiratory effort is even, unlabored, Respiratory pattern is regular, symmetrical. 08:07 Reassessment: Patient and/or family updated on plan of care and expected duration. Pain ap3 level reassessed. Patient is alert, oriented x 3, equal unlabored respirations, skin warm/dry/pink. 08:45 Reassessment: Patient and/or family updated on plan of care and expected duration. Pain ap3 level reassessed. Patient is alert, oriented x 3, equal unlabored respirations, skin warm/dry/pink. Vital Signs: 06:48 BP 159 / 104; Pulse 68; Resp 18 S; Temp 97.2(O); Pulse Ox 100% on R/A; Weight 91.63 kg; ha1 Height 6 ft. 0 in. ; 08:07 BP 157 / 98; Pulse 65; Resp 17; Pulse Ox 98% ; ap3 09:18 BP 163 / 82; Pulse 56; Pulse Ox 100% on R/A; ap3 06:48 Body Mass Index 27.40 (91.63 kg, 182.88 cm) ha1 ED Course: 06:48 Patient arrived in ED. gm2 06:57 Celio Hadley MD is Attending Physician. rn 07:01 Lyndsay Bentley RN is Primary Nurse. ap3 07:02 Triage completed. ha1 07:14 Arm band placed on right wrist. ap3 07:14 Patient has correct armband on for positive identification. Bed in low position. Call ap3 light in reach. Side rails up X 1. Adult w/ patient. Provided Education on: call light education. 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 Pulse ox on. NIBP on. 07:30 US Abdomen Limited In Process Unspecified. EDMS 07:37 CT Abd/Pelvis - IV Contrast Only In Process Unspecified. EDMS 07:43 Inserted saline lock: 22 gauge in left antecubital area, using aseptic technique. Blood kc6 collected. Flushed with 10 mL NS. 08:06 EKG done, by ED staff, reviewed by Celio Hadley MD. ap3 09:47 Rudi Oliva MD is Referral Physician. rn 09:51 No provider procedures requiring assistance completed. IV discontinued, intact, ap3 bleeding controlled, No redness/swelling at site. Pressure dressing applied. Administered Medications: 08:06 Drug: Famotidine IVP 20 mg IVP once; dilute with 10 mL 0.9% NaCl; give over 2 minutes ap3 Route: IVP; Site: left antecubital; 09:52 Follow up: Response: No adverse reaction ap3 08:06 Drug: Ondansetron IVP 4 mg IVP once; over 2 minutes Route: IVP; Site: left antecubital; ap3 09:52 Follow up: Response: No adverse reaction ap3 08:06 Drug: morphine IVP or IV 4 mg IVP once over 4 mins Route: IVP; Infused Over: 4 mins; ap3 Site: left antecubital; 09:52 Follow up: Response: No adverse reaction; Pain is decreased ap3 08:06 Drug: GI Cocktail without - (Maalox PO 30 ml, Lidocaine Mucous Membrane 2 % 15 ap3 ml) PO once Route: PO; 09:52 Follow up: Response: No adverse reaction ap3 Medication: 09:52 VIS not applicable for this client. ap3 Outcome: 09:47 Discharge ordered by MD. reynolds 09:51 Discharged to home ambulatory, with family, ap3 09:51 Condition: good 09:51 Condition: good 09:51 Discharge instructions given to patient, Instructed on discharge instructions, follow up and referral plans. medication usage, Demonstrated understanding of instructions, follow-up care, medications, Prescriptions given X 2, 09:53 Patient left the ED. ap3 Signatures: Dispatcher [employer] EDMS Celio Hadley MD MD rn Prokisch, Amanda RN RN ap3 Marcela Fish RN RN ha1 Stephanie Gaffney RN RN kc6 April Young 2
[2024-05-26 10:03] VITALS: TEMP 97.2
[2024-05-26 10:14] VITALS: BP 163/82; O2SAT 100
--- NOTE | 2024-05-27 11:28 | EKG ---
Test Date: 2024-05-26 Test Time: 07:48:18 Freight Solicitor: ALP MEASUREMENT RESULTS: Intervals: Rate: 67 FL: 160 QRSD: 96 QT: 386 QTc: 407 [place]: P: 71 FL: 160 QRS: 63 T: 72 INTERPRETIVE STATEMENTS: Normal sinus rhythm Normal ECG No previous ECG available for comparison Electronically Signed On 05-27-24 11:27:43 OSCILLOGRAPH TECHNICIAN by Meño Seymour
== END 2024-05-26 09:53 | disposition home or self-care (01) ==
LOC: ER 06:45
DX: K80.80 Other cholelithiasis without obstruction (principal); F17.210 Nicotine dependence, cigarettes, uncomplicated
CPT/HCPCS: 36415; 74177; 76705; 80053; 83690; 84484; 85025; 93005; 96374; 96375; 99285; J2405; Q9967

== ENCOUNTER 2024-06-14 07:21 | Day surgery (SDC) | payer OTHER ==
[2024-06-11 16:24] LABS: ALT/SGPT 30 U/L (16-61); AST/SGOT 19 U/L (15-37); Albumin 3.6 g/dL (3.4-5.0); Albumin/Globulin Ratio 0.9 (1.1-1.8); Alkaline Phosphatase 69 U/L (45-117); Bilirubin Total 0.3 mg/dL (0.2-1.0); Globulin 3.9 g/dL (2.3-3.5); Lipase 33 U/L (13-75); Protein, Total 7.5 g/dL (6.4-8.2)
[2024-06-11 16:25] LABS: Bilirubin Direct < 0.2 mg/dL (0-0.2); Bilirubin Indirect, Calculated 0.1 mg/dL (0.2-0.8)
--- NOTE | 2024-06-11 17:04 | RAD REPORT ---
Procedure: Chest Pa And Lat (2 Views) HISTORY: Preop COMPARISON: 2016 FINDINGS: The lungs appear clear of acute infiltrate. No significant pleural effusion noted. The heart is normal size. IMPRESSION: No acute abnormality is displayed.
[2024-06-14] MEDS ORDERED: Ringers Lactate 1,000 ML IV ONE (07:32)
[2024-06-14] MEDS ORDERED: FENTANYL CITR 100 MCG/2 ML ONE ×2 (07:50→08:58)
[2024-06-14] MEDS ORDERED: propofoL 200 MG/20 ML VIAL IV ONE (07:50)
[2024-06-14] MEDS ORDERED: LIDOCAINE 2% MPF 5 ML VIAL ONE (07:50)
[2024-06-14] MEDS ORDERED: ROCURONIUM 50 MG/5 ML VIAL IV ONE (07:50)
[2024-06-14] MEDS ORDERED: MIDAZOLAM HCL 2 MG/2 ML INJ ONE (07:50)
[2024-06-14] MEDS ORDERED: ONDANSETRON 4 MG/2 ML VIAL ONE (07:50)
[2024-06-14] MEDS: CEFOXITIN SODIUM 1 GM/VIAL ONE (08:58)
[2024-06-14] MEDS ORDERED: dexAMETHasone 10 MG/ML VIAL ONE (09:08)
--- NOTE | 2024-06-14 09:30 | P.BOP ---
Preoperative diagnosis: Acute cholecystitis, symptomatic cholelithiasis Postoperative diagnosis: same Primary procedure: Laparoscopic cholecystectomy Estimated blood loss: <10cc Specimen: gb Findings: as above Anesthesia: General Complications: None Transferred to: Recovery Room Condition: Good
[2024-06-14] MEDS: HYDROMORPHONE HCL 1 MG/ML INJ ONE ×2 (09:46→09:56)
[2024-06-14] MEDS ORDERED: SUGAMMADEX SODIUM 200 MG/2 ML VIAL IV ONE (10:05)
--- NOTE | 2024-06-14 10:07 | OP ---
Date of Procedure: 06/14/2024 Surgeon: Rudi Oliva MD Preoperative Diagnoses: Acute cholecystitis, symptomatic cholelithiasis. Postoperative Diagnoses: Acute cholecystitis, symptomatic cholelithiasis. Procedure: Laparoscopic cholecystectomy. Estimated Blood Loss: Less than 10 cc. Specimen: Gallbladder. Anesthesia: General plus local. Indications: This is a case of a 64-year-old patient, who comes to us with above diagnoses. Fully e xplained the benefits, alternatives, and risks of laparoscopic possible open cholecystectomy, which i nclude, but not limited to infection, bleeding, damage to adjacent structures, anesthesia complicatio n, choledocholithiasis, bile leak, pancreatitis, [place], and even . He also understands this may no t relieve any symptoms. He might need more than one surgical intervention. He understood signed a c onsent. Procedure In Detail: The patient brought to the operating room, placed in supine position. Anesthes ia was induced without complication. Abdominal area was prepped and draped in the usual sterile fash ion. Marcaine 0.5% was injected for local anesthetic followed by sharp incision of the skin in the s upraumbilical region. Incision was carried down to fascia, which was opened under direct vision. Pe ritoneum was encountered, opened under direct vision. Vicryl #1 placed inside the fascia. Dragan tr ocar was carefully introduced. No bleeding was obtained. I placed 3 more trocars, 5 mm each one of them, 1 in the epigastric area, 2 in the right upper quadrant using same technique which consisted of local anesthetic. Sharp incision of the skin, introduction of the trocars under direct vision. Thi s allowed me to put a grasper in the fundus of the gallbladder, another grasper in the infundibulum, retracted the gallbladder in the inferolateral fashion exposing the triangle of Calot and obtaining c ritical view. The cystic duct and cystic artery were clearly isolated and freed circumferentially, a nd a connection between those and the gallbladder were clearly identified. I proceeded to ligate tho se by using at least 3 clips proximal, 1 clip distal, ligation in middle. Same was done with the cys tic artery. A small little branch of the cystic artery was also ligated using the same technique. T he hepatic arteries and common bile duct were protected at all times. The gallbladder was removed fr om liver using Bovie cauterizer and removed from abdominal cavity using EndoCatch through the umbilic al incision. The area was inspected once again. No bile leak. No bleeding. At that moment, I proc eeded to remove the trocars under direct vision. Deflated the pneumoperitoneum. Closed the fascia w ith #1 Vicryl, irrigated subcutaneous tissue, closed that with 3-0 chromic and then skin in a subcuti cular fashion with 3-0 chromic and Steri-Strips on top. Sponge count and instrument counts correct. The patient tolerated the procedure well. The patient was sent to Recovery in stable condition. VIRA/WICHO Voice ID: [id number] Report ID: [id number]
--- NOTE | 2024-06-14 10:07 | DS ---
Date of Discharge: 06/14/2024 Diagnoses: Acute cholecystitis, symptomatic cholelithiasis. Procedure: Laparoscopic cholecystectomy Condition: Stable. Disposition: Home. Activity: As tolerated. No heavy lifting. Discharge Instructions: Follow up in my office in 1 week. Call for appointment at [phone]. Keep t he area dry for 48 hours. He may shower. Keep Steri-Strip intact. For medications, see orders. VIRA/WICHO Voice ID: [id number] Report ID: [id number]
[2024-06-14] MEDS: CODEINE 30MG/APAP 300MG TAB ONE (10:28)
[2024-06-14 10:57] VITALS: BP 140/86; TEMP 97.6; O2SAT 98
== END 2024-06-14 11:00 | disposition home or self-care (01) ==
LOC: OR 07:21
PROVIDERS: ATTEND Surgery
PROC: 0FT44ZZ Resection of Gallbladder, Percutaneous Endoscopic Approach (ICD-10-PCS; principal; 2024-06-14 08:46)
DX: K80.10 Calculus of gallbladder with chronic cholecystitis without obstruction (principal); R10.11 Right upper quadrant pain
CPT/HCPCS: 36415; 80076; 88304; 83690; 71046; 47562; J2704; J2003; J2250; J3010 ×2; J1100; J1171 ×2; J0694; J2405; J7120